=== PATIENT | male | born 1955 | race Caucasian/White ===

== ENCOUNTER 2017-02-04 08:12 | Emergency (ER) | payer MEDICARE ==
[~2017-02-04] VITALS: Ht 167.6 cm; Wt 85.0 kg
[~2017-02-04 08:12] MED LIST: ALTOPREV20 MG OR; AMILORIDE5 MG OR; AMOXIL500 MG OR; ATORVASTATIN CA40 MG PO; BACTRIM DS1 TAB PO; FENOFIBRATE145 MG PO; HYDROCHLOROT12.5 MG OR; KEFLEX500 M1 PO; LANTUS100 MG/ML SC; LEVEMIR1000 UNITS SC; LISINOPRIL30 MG PO; LISINOPRIL40 MG PO; LOPID600 MG OR; LOPID600 MG PO; LOPRESSOR50 M1 PO; LOVASTATIN20 M1 PO; METFORMIN1000 MG OR; METFORMIN850 MG OR; MICRONASE5 MG PO; NAPROSYN500 MG OR; NICOTINE T21 MG/PATC TD; NIFEDICAL XL30 MG PO; NORVASC PO; NOVOLOG100 IU/1 M SC; PENICILLN VK500 MG PO; QVAR80 MCG IN; ROBITUSSIN200 MG/10 PO; TRAMADOL HCL50 MG PO; ULTRAM50 M1 OR; ULTRAM50 M1 PO; ULTRAM50 MG OR; VENTOLIN HFA IN; VITAMIN D50000 UNT PO; ZESTRIL/PRIN5 MG/TA1 PO; ZESTRIL20 MG OR
[2017-02-04 08:46] LABS: HEMATOCRIT 38.8 % (39.0-50.0); HEMOGLOBIN 13.2 g/dl (14.0-18.0); IMMATURE GRANULOCYTES 0.4 % (0.0-1.0); MEAN CELL VOLUME 86.6 fL CALC (80.0-100.0); MEAN CORPUSCULAR HGB 29.5 pG CALC (26.0-32.0); NEUT# 8.43 thou/uL (1.82-7.42); RED BLOOD COUNT 4.48 mill/uL (4.70-6.10); RED CELL DISTRI WIDTH 13.7 % (11.5-15.5)
[2017-02-04] MEDS ORDERED: BACTRIM DS1 TAB PO (08:55)
[2017-02-04] MEDS ORDERED: MOTRIN400 MG PO (08:55)
[2017-02-04 08:58] VITALS: BP 186/78
== END 2017-02-04 09:07 | disposition home or self-care (01) ==
LOC: ED 08:12
PROVIDERS: Family Medicine
DX: M25.531 Pain in right wrist (principal); E11.22 Type 2 diabetes mellitus with diabetic chronic kidney disease; I12.9 Hypertensive chronic kidney disease with stage 1 through stage 4 chronic kidney disease, or unspecified chronic kidney disease; N18.4 Chronic kidney disease, stage 4 (severe); J44.9 Chronic obstructive pulmonary disease, unspecified; E78.5 Hyperlipidemia, unspecified; F17.210 Nicotine dependence, cigarettes, uncomplicated

== ENCOUNTER 2017-12-28 11:10 | Emergency (ER) | payer MEDICARE ==
[~2017-12-28] VITALS: Ht 167.6 cm; Wt 75.0 kg
[~2017-12-28 11:10] MED LIST changes: +MOTRIN400 MG PO
[2017-12-28 11:56] LABS: IMMATURE GRANULOCYTES 0.7 % (0.0-5.0); MEAN CELL VOLUME 89.8 fL CALC (80.0-100.0); MEAN CORPUSCULAR HGB 30.5 pG CALC (26.0-32.0); NEUT# 6.64 thou/uL (1.82-7.42); RED BLOOD COUNT 3.34 mill/uL (4.70-6.10); RED CELL DISTRI WIDTH 14.2 % (11.5-15.5)
[2017-12-28 11:57] LABS: HEMOGLOBIN 10.2 g/dl (14.0-18.0)
[2017-12-28 12:20] LABS: ALKALINE PHOSPHATASE 60 u/l (38-126); BILIRUBIN, TOTAL 0.7 mg/dL (0.0-1.4); BUN 64 mg/dL (8-23); CHLORIDE 111 mmol/l (95-108); POTASSIUM 4.3 mmol/l (3.5-5.1); SGOT/AST 32 u/l (19-48); SGPT/ALT 35 u/l (11-66); SODIUM 134 mmol/l (137-146)
[2017-12-28 12:25] LABS: BUN/CREATININE RATIO 8 (12-20 (CALC)); GFR 7 ML/MIN (>=60 (CALC)); GFR FOR AFR.AMER. 9 ML/MIN (>=60 (CALC))
[2017-12-28 12:26] LABS: ANION GAP 16 (6-22 (CALC)); CARBON DIOXIDE 11 mmol/l (22-30); CREATININE 7.6 mg/dL (0.7-1.3); TOTAL PROTEIN 5.4 g/dL (6.3-8.2)
[2017-12-28 12:31] LABS: MYOGLOBIN 104 ng/mL (0 - 121)
[2017-12-28 12:54] LABS: URINE BILIRUBIN - DIPSTICK NEGATIVE (NEGATIVE); URINE BLOOD DIPSTICK SMALL (NEGATIVE); URINE CLARITY CLEAR; URINE COLOR YELLOW; URINE GLUCOSE - DIPSTICK 250 mg/dL (NEGATIVE); URINE KETONE NEGATIVE (NEGATIVE); URINE LEUK ESTERASE NEGATIVE (NEGATIVE); URINE PH 5.5 (4.5-8.0); URINE PROTEIN - DIPSTICK 100 mg/dL (NEG-TRACE); URINE UROBILINOGEN - DIPSTICK 0.2 E.U./dL (0.2)
[2017-12-28 12:58] LABS: URINE NITRITE - DIPSTICK NEGATIVE (Negative)
[2017-12-28 13:05] LABS: URINE COARSE GRANULAR CAST FEW lpf; URINE WBC 0-2 WBC/hpf (0-5)
[2017-12-28 13:51] VITALS: BP 143/76
== END 2017-12-28 13:50 ==
LOC: ED 11:10
PROVIDERS: Emergency Medicine
DX: I12.9 Hypertensive chronic kidney disease with stage 1 through stage 4 chronic kidney disease, or unspecified chronic kidney disease (principal); F17.210 Nicotine dependence, cigarettes, uncomplicated; N18.9 Chronic kidney disease, unspecified; R42 Dizziness and giddiness; E78.5 Hyperlipidemia, unspecified; E11.9 Type 2 diabetes mellitus without complications; Z79.4 Long term (current) use of insulin

== ENCOUNTER 2018-03-07 13:06 | Outpatient (REF) | payer MEDICARE ==
[2018-03-07 13:41] VITALS: BP 164/76
--- NOTE | 2018-03-07 13:43 | NUR ---
Patient is here for Procrit injection Current Procrit dose held on 03/07/2018 Previous Procrit dose of 14,000 units on 02/21/2018 Current Hgb 12 L on 03/07/2018 Previous Hgb 11.3 L on 02/21/2018 Iron study pending Next Hgb due on:03/21/2018 Pt will come back for next dose on date 03/21/2018 Notes: Patient is doing well, Blood pressure of 164/76 with no blood pressure medications taken today. Patient has no complaints of headache and fatigue. Patient hgb level at 12 L, will hold today and check in 2 weeks, if hgb is down will start on a lower dose. QOL assessment Side effects: No
== END 2018-03-07 13:44 | disposition home or self-care (01) ==
LOC: INF 13:06
PROVIDERS: ATTEND Internal Medicine Nephrology
DX: D63.1 Anemia in chronic kidney disease (principal); N18.5 Chronic kidney disease, stage 5

== ENCOUNTER → 2018-07-13 | Outpatient (REF) ==
[~2018-07-13] MED LIST changes: +PHOSLO667 M1 PO; +PHRENILIN1 TAB PO; +PROCARDIA XL30 MG PO; +SODIUM BICARBI650 MG PO
== END | disposition home or self-care (01) | DRG 103 ==
LOC: LAB 15:21
PROVIDERS: ATTEND Physician Assistant Medical
DX: R51 Headache (principal); N25.81 Secondary hyperparathyroidism of renal origin; E87.1 Hypo-osmolality and hyponatremia

== ENCOUNTER 2018-07-20 17:22 | Emergency (ER) | payer MEDICARE ==
[~2018-07-20] VITALS: Ht 167.6 cm; Wt 84.0 kg
[~2018-07-20 17:22] MED LIST changes: -PHOSLO667 M1 PO; -PHRENILIN1 TAB PO; -PROCARDIA XL30 MG PO; -SODIUM BICARBI650 MG PO
[2018-07-20 18:33] LABS: HEMATOCRIT 27.2 % (39.0-50.0); IMMATURE GRANULOCYTES 0.6 % (0.0-5.0); MEAN CELL VOLUME 94.4 fL CALC (80.0-100.0); MEAN CORPUSCULAR HGB 30.9 pG CALC (26.0-32.0); MEAN CORPUSCULAR HGB CONC 32.7 g/L CALC (32.0-36.0); NEUT# 5.88 thou/uL (1.82-7.42); RED BLOOD COUNT 2.88 mill/uL (4.70-6.10); RED CELL DISTRI WIDTH 14.5 % (11.5-15.5)
[2018-07-20 18:34] LABS: HEMOGLOBIN 8.9 g/dl (14.0-18.0)
[2018-07-20] MEDS ORDERED: PHOSLO667 M1 PO (18:41)
[2018-07-20] MEDS ORDERED: PROCARDIA XL30 MG PO (18:41)
[2018-07-20] MEDS ORDERED: PHRENILIN1 TAB PO (18:41)
[2018-07-20] MEDS ORDERED: SODIUM BICARBI650 MG PO (18:42)
[2018-07-20 18:51] LABS: ALBUMIN 3.4 g/dL (3.2-5.0); BILIRUBIN, TOTAL 0.5 mg/dL (0.0-1.4); MAGNESIUM 1.7 mg/dL (1.6-2.3); POTASSIUM 4.4 mmol/l (3.5-5.1)
[2018-07-20 18:56] LABS: CREATININE 5.5 mg/dL (0.7-1.3)
[2018-07-20 19:22] LABS: TSH, 3RD GENERATION 0.64 uIU/mL (0.47 - 4.68)
[2018-07-20 19:40] LABS: URINE BILIRUBIN - DIPSTICK NEGATIVE (NEGATIVE); URINE BLOOD DIPSTICK TRACE-INTACT (NEGATIVE); URINE COLOR YELLOW; URINE GLUCOSE - DIPSTICK 500 mg/dL (NEGATIVE); URINE KETONE NEGATIVE (NEGATIVE); URINE LEUK ESTERASE NEGATIVE (NEGATIVE); URINE NITRITE - DIPSTICK NEGATIVE (Negative); URINE PH 7.5 (4.5-8.0); URINE PROTEIN - DIPSTICK >=300 mg/dL (NEG-TRACE); URINE SPECIFIC GRAVITY 1.015; URINE UROBILINOGEN - DIPSTICK 0.2 E.U./dL (0.2)
[2018-07-20 19:46] VITALS: BP 161/72
[2018-07-20 19:50] LABS: URINE RBC 0-2 RBC/hpf (0-5); URINE WBC 0-2 WBC/hpf (0-5)
== END 2018-07-20 21:00 | disposition home or self-care (01) ==
LOC: ED 17:22
PROVIDERS: Family Medicine
DX: D64.9 Anemia, unspecified (principal); E11.22 Type 2 diabetes mellitus with diabetic chronic kidney disease; I12.0 Hypertensive chronic kidney disease with stage 5 chronic kidney disease or end stage renal disease; N18.6 End stage renal disease; Z99.2 Dependence on renal dialysis; E78.5 Hyperlipidemia, unspecified; J44.9 Chronic obstructive pulmonary disease, unspecified; F17.210 Nicotine dependence, cigarettes, uncomplicated

== ENCOUNTER 2018-10-02 07:41 | Emergency (ER) | payer MEDICARE ==
[~2018-10-02] VITALS: Ht 167.6 cm; Wt 72.0 kg
[~2018-10-02 07:41] MED LIST changes: -LANTUS100 MG/ML SC; +LANTUS100 UNIT/M SC; +PHOSLO667 M1 PO; +PHRENILIN1 TAB PO; +PROCARDIA XL60 MG PO; +SODIUM BICARBI650 MG PO
[2018-10-02] MEDS ORDERED: VITAMIN D50000 UNIT PO (08:07)
[2018-10-02 08:24] LABS: IMMATURE GRANULOCYTES 1.1 % (0.0-5.0); MEAN CELL VOLUME 96.8 fL CALC (80.0-100.0); MEAN CORPUSCULAR HGB 30.7 pG CALC (26.0-32.0); MEAN CORPUSCULAR HGB CONC 31.7 g/L CALC (32.0-36.0); NEUT# 9.96 thou/uL (1.82-7.42); RED BLOOD COUNT 4.11 mill/uL (4.70-6.10); RED CELL DISTRI WIDTH 15.2 % (11.5-15.5)
[2018-10-02 08:36] LABS: ALBUMIN 3.9 g/dL (3.2-5.0); BILIRUBIN, TOTAL 0.5 mg/dL (0.0-1.4); TOTAL PROTEIN 6.8 g/dL (6.3-8.2)
[2018-10-02 08:39] LABS: POTASSIUM 5.7 mmol/l (3.5-5.1)
[2018-10-02 08:40] LABS: CREATININE 7.6 mg/dL (0.7-1.3)
[2018-10-02 08:41] LABS: HEMATOCRIT 39.8 % (39.0-50.0); HEMOGLOBIN 12.6 g/dl (14.0-18.0)
[2018-10-02 11:02] VITALS: BP 111/63
== END 2018-10-02 11:03 ==
LOC: ED 07:41
PROVIDERS: Emergency Medicine
DX: J96.02 Acute respiratory failure with hypercapnia (principal); R06.02 Shortness of breath; F17.210 Nicotine dependence, cigarettes, uncomplicated; I12.0 Hypertensive chronic kidney disease with stage 5 chronic kidney disease or end stage renal disease; N18.6 End stage renal disease; Z99.2 Dependence on renal dialysis

== ENCOUNTER 2018-10-05 08:08 | Emergency (ER) | payer MEDICARE ==
[~2018-10-05] VITALS: Ht 167.6 cm; Wt 77.1 kg
[~2018-10-05 08:08] MED LIST changes: +VITAMIN D50000 UNIT PO
[2018-10-05 08:57] LABS: HEMOGLOBIN 11.2 g/dl (14.0-18.0); IMMATURE GRANULOCYTES 0.7 % (0.0-5.0); MEAN CELL VOLUME 91.9 fL CALC (80.0-100.0); MEAN CORPUSCULAR HGB 30.3 pG CALC (26.0-32.0); MEAN CORPUSCULAR HGB CONC 32.9 g/L CALC (32.0-36.0); NEUT# 6.44 thou/uL (1.82-7.42); RED BLOOD COUNT 3.7 mill/uL (4.70-6.10)
[2018-10-05 09:20] LABS: ALBUMIN 3.6 g/dL (3.2-5.0); BILIRUBIN, TOTAL 0.5 mg/dL (0.0-1.4); TOTAL PROTEIN 6.2 g/dL (6.3-8.2)
[2018-10-05 09:25] LABS: CREATININE 4.4 mg/dL (0.7-1.3); POTASSIUM 4.5 mmol/l (3.5-5.1)
[2018-10-05 11:43] VITALS: BP 158/66
== END 2018-10-05 11:59 | disposition home or self-care (01) ==
LOC: ED 08:08 → ED-I 08:25 → ED 08:25 → ED-I 09:48 → ED 11:59
PROVIDERS: Emergency Medicine
DX: R07.9 Chest pain, unspecified (principal); J44.9 Chronic obstructive pulmonary disease, unspecified; F17.210 Nicotine dependence, cigarettes, uncomplicated; R06.02 Shortness of breath; R05 Cough; I10 Essential (primary) hypertension

== ENCOUNTER 2018-10-06 17:27 | Emergency (ER) | payer MEDICARE ==
[~2018-10-06] VITALS: Ht 167.6 cm; Wt 77.0 kg
[2018-10-06 18:40] LABS: HEMATOCRIT 37.5 % (39.0-50.0); HEMOGLOBIN 12.6 g/dl (14.0-18.0); IMMATURE GRANULOCYTES 0.8 % (0.0-5.0); MEAN CELL VOLUME 91.7 fL CALC (80.0-100.0); MEAN CORPUSCULAR HGB 30.8 pG CALC (26.0-32.0); MEAN CORPUSCULAR HGB CONC 33.6 g/L CALC (32.0-36.0); NEUT# 8.38 thou/uL (1.82-7.42); RED BLOOD COUNT 4.09 mill/uL (4.70-6.10); RED CELL DISTRI WIDTH 14.7 % (11.5-15.5)
[2018-10-06 19:01] LABS: BILIRUBIN, TOTAL 0.5 mg/dL (0.0-1.4); CREATININE 3.9 mg/dL (0.7-1.3); TOTAL PROTEIN 6.6 g/dL (6.3-8.2)
[2018-10-06 20:36] LABS: ACT PARTIAL THROMBO TIME 26.4 SECONDS (20.0-32.5); INTERNATIONAL NORMALIZED RATIO 0.9 RATIO (0.7-1.3); PROTHROMBIN TIME 9.9 SECONDS (9.0-12.5)
[2018-10-06 23:00] VITALS: BP 185/86
== END 2018-10-06 23:11 ==
LOC: ED 17:27
PROVIDERS: Emergency Medicine; Family Medicine
DX: R07.9 Chest pain, unspecified (principal); R74.8 Abnormal levels of other serum enzymes; R06.02 Shortness of breath; R51 Headache; E11.22 Type 2 diabetes mellitus with diabetic chronic kidney disease; I12.0 Hypertensive chronic kidney disease with stage 5 chronic kidney disease or end stage renal disease; N18.6 End stage renal disease; J44.9 Chronic obstructive pulmonary disease, unspecified; F17.210 Nicotine dependence, cigarettes, uncomplicated; Z99.2 Dependence on renal dialysis
CPT/HCPCS: J1644

== ENCOUNTER 2018-11-24 16:40 | Emergency (ER) | payer MEDICARE ==
[~2018-11-24] VITALS: Ht 167.6 cm; Wt 78.0 kg
[2018-11-24 17:05] LABS: HEMATOCRIT 35.5 % (39.0-50.0); HEMOGLOBIN 11.6 g/dl (14.0-18.0); IMMATURE GRANULOCYTES 2.9 % (0.0-5.0); MEAN CELL VOLUME 89.6 fL CALC (80.0-100.0); MEAN CORPUSCULAR HGB 29.3 pG CALC (26.0-32.0); MEAN CORPUSCULAR HGB CONC 32.7 g/L CALC (32.0-36.0); NEUT# 9.19 thou/uL (1.82-7.42); RED BLOOD COUNT 3.96 mill/uL (4.70-6.10); RED CELL DISTRI WIDTH 15.5 % (11.5-15.5)
[2018-11-24 17:29] LABS: CREATININE 2.6 mg/dL (0.7-1.3)
[2018-11-24] MEDS ORDERED: PHOSLO667 M1 PO (17:57)
[2018-11-24] MEDS ORDERED: NIFEDIPINE60 MG PO (17:57)
[2018-11-24 21:39] VITALS: BP 122/54
== END 2018-11-24 21:38 ==
LOC: ED 16:40
PROVIDERS: Family Medicine
DX: I48.91 Unspecified atrial fibrillation (principal); E11.22 Type 2 diabetes mellitus with diabetic chronic kidney disease; I12.0 Hypertensive chronic kidney disease with stage 5 chronic kidney disease or end stage renal disease; N18.6 End stage renal disease; J44.9 Chronic obstructive pulmonary disease, unspecified; F17.200 Nicotine dependence, unspecified, uncomplicated; Z99.2 Dependence on renal dialysis; R07.9 Chest pain, unspecified

== ENCOUNTER 2019-01-05 03:13 | Emergency (ER) | payer MEDICARE ==
[~2019-01-05] VITALS: Ht 167.6 cm; Wt 100.0 kg
[~2019-01-05 03:13] MED LIST changes: +NIFEDIPINE60 MG PO
[2019-01-05 03:52] LABS: IMMATURE GRANULOCYTES 0.4 % (0.0-5.0); MEAN CELL VOLUME 90.5 fL CALC (80.0-100.0); MEAN CORPUSCULAR HGB 29.1 pG CALC (26.0-32.0); MEAN CORPUSCULAR HGB CONC 32.1 g/L CALC (32.0-36.0); NEUT# 6.97 thou/uL (1.82-7.42); RED BLOOD COUNT 3.06 mill/uL (4.70-6.10); RED CELL DISTRI WIDTH 14.7 % (11.5-15.5)
[2019-01-05 04:08] LABS: HEMATOCRIT 27.7 % (39.0-50.0); HEMOGLOBIN 8.9 g/dl (14.0-18.0)
[2019-01-05] MEDS ORDERED: ATORVASTATIN CA40 MG PO (04:09)
[2019-01-05] MEDS ORDERED: ASPIRINCHW 81MG PO (04:09)
[2019-01-05] MEDS ORDERED: CARVEDILOL6.25 MG PO (04:10)
[2019-01-05] MEDS ORDERED: CLOPIDOGREL75 MG PO (04:11)
[2019-01-05] MEDS ORDERED: DIOVAN160 MG PO (04:11)
[2019-01-05] MEDS ORDERED: VENTOLIN HF1 IN (04:13)
[2019-01-05 04:16] LABS: ACT PARTIAL THROMBO TIME 26.8 SECONDS (20.0-32.5); INTERNATIONAL NORMALIZED RATIO 1.1 RATIO (0.7-1.3); PROTHROMBIN TIME 11.2 SECONDS (9.0-12.5)
[2019-01-05 04:17] LABS: ALBUMIN 3.2 g/dL (3.2-5.0); ALKALINE PHOSPHATASE 118 u/l (38-126); ANION GAP 15 (6-22 (CALC)); BILIRUBIN, TOTAL 0.5 mg/dL (0.0-1.4); BUN 34 mg/dL (8-23); BUN/CREATININE RATIO 6 (12-20 (CALC)); CARBON DIOXIDE 26 mmol/l (22-30); CHLORIDE 99 mmol/l (95-108); GFR 10 ML/MIN (>=60 (CALC)); GFR FOR AFR.AMER. 12 ML/MIN (>=60 (CALC)); POTASSIUM 3.9 mmol/l (3.5-5.1); SGOT/AST 18 u/l (19-48); SODIUM 135 mmol/l (137-146); TOTAL PROTEIN 5.6 g/dL (6.3-8.2)
[2019-01-05 04:22] LABS: CREATININE 5.7 mg/dL (0.7-1.3)
[2019-01-05 04:29] LABS: MYOGLOBIN 176 ng/mL (0 - 121)
[2019-01-05 07:00] VITALS: BP 126/61
== END 2019-01-05 07:00 ==
LOC: ED 03:13
PROVIDERS: Emergency Medicine
DX: I48.91 Unspecified atrial fibrillation (principal); R07.9 Chest pain, unspecified; D64.9 Anemia, unspecified; R79.89 Other specified abnormal findings of blood chemistry; I12.0 Hypertensive chronic kidney disease with stage 5 chronic kidney disease or end stage renal disease; E11.22 Type 2 diabetes mellitus with diabetic chronic kidney disease; N18.6 End stage renal disease; J44.9 Chronic obstructive pulmonary disease, unspecified; F17.210 Nicotine dependence, cigarettes, uncomplicated; Z99.2 Dependence on renal dialysis

== ENCOUNTER 2019-01-29 01:02 | Emergency (ER) | payer MEDICARE ==
[~2019-01-29] VITALS: Ht 167.6 cm; Wt 63.6 kg
[~2019-01-29 01:02] MED LIST changes: +ASPIRINCHW 81MG PO; +CARVEDILOL6.25 MG PO; +CLOPIDOGREL75 MG PO; +DIOVAN160 MG PO; +VENTOLIN HF1 IN
--- NOTE | 2019-01-29 01:26 | NUR ---
BREATHING TREATMENT GIVEN WITH ONE UD DUONEB AND 2 UD ALBUTEROL. BREATHING TECH. FOR GOOD DEPOSITION TO THE LUNGS.
[2019-01-29 01:50] LABS: HEMATOCRIT 28.3 % (39.0-50.0); IMMATURE GRANULOCYTES 0.4 % (0.0-5.0); MEAN CELL VOLUME 89.6 fL CALC (80.0-100.0); MEAN CORPUSCULAR HGB 28.5 pG CALC (26.0-32.0); MEAN CORPUSCULAR HGB CONC 31.8 g/L CALC (32.0-36.0); NEUT# 6.06 thou/uL (1.82-7.42); RED BLOOD COUNT 3.16 mill/uL (4.70-6.10); RED CELL DISTRI WIDTH 14.9 % (11.5-15.5)
[2019-01-29 02:03] LABS: ALBUMIN 3.7 g/dL (3.2-5.0); BILIRUBIN, TOTAL 0.6 mg/dL (0.0-1.4); TOTAL PROTEIN 6.6 g/dL (6.3-8.2)
[2019-01-29 02:05] LABS: CREATININE 7.7 mg/dL (0.7-1.3); POTASSIUM 5.5 mmol/l (3.5-5.1)
[2019-01-29 02:58] LABS: URINE BILIRUBIN - DIPSTICK NEGATIVE (NEGATIVE); URINE BLOOD DIPSTICK SMALL (NEGATIVE); URINE COLOR YELLOW; URINE GLUCOSE - DIPSTICK 250 mg/dL (NEGATIVE); URINE KETONE NEGATIVE (NEGATIVE); URINE LEUK ESTERASE NEGATIVE (NEGATIVE); URINE NITRITE - DIPSTICK NEGATIVE (Negative); URINE PH 7.5 (4.5-8.0); URINE PROTEIN - DIPSTICK 100 mg/dL (NEG-TRACE); URINE UROBILINOGEN - DIPSTICK 0.2 E.U./dL (0.2)
[2019-01-29 03:05] LABS: URINE RBC 0-2 RBC/hpf (0-5); URINE WBC 0-2 WBC/hpf (0-5)
[2019-01-29 03:15] VITALS: BP 165/72
== END 2019-01-29 03:40 | disposition home or self-care (01) ==
LOC: ED 01:02
PROVIDERS: Family Medicine
DX: J44.1 Chronic obstructive pulmonary disease with (acute) exacerbation (principal); F17.210 Nicotine dependence, cigarettes, uncomplicated; I12.0 Hypertensive chronic kidney disease with stage 5 chronic kidney disease or end stage renal disease; N18.6 End stage renal disease; Z99.2 Dependence on renal dialysis; J81.1 Chronic pulmonary edema

== ENCOUNTER 2019-02-15 12:23 | Emergency (ER) | payer MEDICARE ==
[~2019-02-15] VITALS: Ht 167.6 cm; Wt 77.5 kg
[2019-02-15 13:34] LABS: HEMATOCRIT 27.3 % (39.0-50.0); HEMOGLOBIN 8.7 g/dl (14.0-18.0); IMMATURE GRANULOCYTES 0.4 % (0.0-5.0); MEAN CELL VOLUME 87.5 fL CALC (80.0-100.0); MEAN CORPUSCULAR HGB 27.9 pG CALC (26.0-32.0); MEAN CORPUSCULAR HGB CONC 31.9 g/L CALC (32.0-36.0); NEUT# 4.64 thou/uL (1.82-7.42); RED BLOOD COUNT 3.12 mill/uL (4.70-6.10); RED CELL DISTRI WIDTH 15.6 % (11.5-15.5)
[2019-02-15 13:46] LABS: CREATININE 4.8 mg/dL (0.7-1.3)
[2019-02-15 16:35] VITALS: BP 121/77
== END 2019-02-15 16:35 ==
LOC: ED 12:23
PROVIDERS: Family Medicine
DX: I48.92 Unspecified atrial flutter (principal); E11.22 Type 2 diabetes mellitus with diabetic chronic kidney disease; I12.0 Hypertensive chronic kidney disease with stage 5 chronic kidney disease or end stage renal disease; N18.6 End stage renal disease; J44.9 Chronic obstructive pulmonary disease, unspecified; F17.200 Nicotine dependence, unspecified, uncomplicated; Z95.5 Presence of coronary angioplasty implant and graft; Z99.2 Dependence on renal dialysis

== ENCOUNTER 2019-03-19 20:30 | Emergency (ER) | payer MEDICARE ==
[~2019-03-19] VITALS: Ht 167.6 cm; Wt 80.0 kg
[2019-03-19 21:10] LABS: HEMATOCRIT 31.5 % (39.0-50.0); HEMOGLOBIN 9.8 g/dl (14.0-18.0); IMMATURE GRANULOCYTES 0.3 % (0.0-5.0); MEAN CELL VOLUME 86.5 fL CALC (80.0-100.0); MEAN CORPUSCULAR HGB 26.9 pG CALC (26.0-32.0); MEAN CORPUSCULAR HGB CONC 31.1 g/L CALC (32.0-36.0); NEUT# 5.39 thou/uL (1.82-7.42); RED BLOOD COUNT 3.64 mill/uL (4.70-6.10); RED CELL DISTRI WIDTH 15.8 % (11.5-15.5)
[2019-03-19 21:28] LABS: ALBUMIN 3.3 g/dL (3.2-5.0); BILIRUBIN, TOTAL 0.7 mg/dL (0.0-1.4); CREATININE 4.4 mg/dL (0.7-1.3); POTASSIUM 4.6 mmol/l (3.5-5.1); TOTAL PROTEIN 6.1 g/dL (6.3-8.2)
[2019-03-19 22:30] VITALS: BP 170/72
== END 2019-03-19 22:32 ==
LOC: ED 20:30
PROVIDERS: Emergency Medicine
PROC: 2W21X4Z Dressing of Face using Bandage (ICD-10-PCS; principal; 2019-03-19)
PROC: 2W2EX4Z Dressing of Right Hand using Bandage (ICD-10-PCS; 2019-03-19)
DX: T20.26XA Burn of second degree of forehead and cheek, initial encounter (principal); T20.20XA Burn of second degree of head, face, and neck, unspecified site, initial encounter; T23.251A Burn of second degree of right palm, initial encounter; T31.0 Burns involving less than 10% of body surface; J44.1 Chronic obstructive pulmonary disease with (acute) exacerbation; J44.0 Chronic obstructive pulmonary disease with (acute) lower respiratory infection; J18.9 Pneumonia, unspecified organism; E11.9 Type 2 diabetes mellitus without complications; I10 Essential (primary) hypertension; F17.200 Nicotine dependence, unspecified, uncomplicated; X04.XXXA Exposure to ignition of highly flammable material, initial encounter; Y93.89 Activity, other specified; Y92.009 Unspecified place in unspecified non-institutional (private) residence as the place of occurrence of the external cause; Z99.81 Dependence on supplemental oxygen

== ENCOUNTER 2019-04-29 13:21 | Emergency (ER) | payer MEDICARE ==
[~2019-04-29] VITALS: Ht 167.6 cm; Wt 77.7 kg
[2019-04-29 14:44] LABS: HEMATOCRIT 31.9 % (39.0-50.0); HEMOGLOBIN 9.8 g/dl (14.0-18.0); IMMATURE GRANULOCYTES 0.7 % (0.0-5.0); MEAN CELL VOLUME 84.8 fL CALC (80.0-100.0); MEAN CORPUSCULAR HGB 26.1 pG CALC (26.0-32.0); MEAN CORPUSCULAR HGB CONC 30.7 g/L CALC (32.0-36.0); NEUT# 15.79 thou/uL (1.82-7.42); RED BLOOD COUNT 3.76 mill/uL (4.70-6.10)
[2019-04-29 15:30] LABS: CREATININE 7.2 mg/dL (0.7-1.3); POTASSIUM 5.7 mmol/l (3.5-5.1)
[2019-04-29 17:10] VITALS: BP 159/88
--- NOTE | 2019-05-03 15:36 | NUR ---
FAXED BLOOD CULTURE RESULTS PRESENTING WITH MRSA TO [facility] TO [facility]. FAX NUMBER IS [phone] PER HELENA.
== END 2019-04-29 17:10 ==
LOC: ED 13:21
PROVIDERS: Family Medicine
DX: T78.3XXA Angioneurotic edema, initial encounter (principal); J18.9 Pneumonia, unspecified organism; J44.0 Chronic obstructive pulmonary disease with (acute) lower respiratory infection; E11.22 Type 2 diabetes mellitus with diabetic chronic kidney disease; I12.0 Hypertensive chronic kidney disease with stage 5 chronic kidney disease or end stage renal disease; N18.6 End stage renal disease; Z99.2 Dependence on renal dialysis; F17.200 Nicotine dependence, unspecified, uncomplicated

== ENCOUNTER 2019-05-20 01:02 | Emergency (ER) | payer MEDICARE ==
[~2019-05-20] VITALS: Ht 167.6 cm; Wt 68.2 kg
[2019-05-20 01:40] LABS: HEMATOCRIT 32.4 % (39.0-50.0); HEMOGLOBIN 9.4 g/dl (14.0-18.0); IMMATURE GRANULOCYTES 0.5 % (0.0-5.0); MEAN CORPUSCULAR HGB 26.5 pG CALC (26.0-32.0); NEUT# 7.18 thou/uL (1.82-7.42); RED BLOOD COUNT 3.55 mill/uL (4.70-6.10); RED CELL DISTRI WIDTH 20.4 % (11.5-15.5)
[2019-05-20 01:44] LABS: MEAN CELL VOLUME 91.3 fL CALC (80.0-100.0)
[2019-05-20 01:54] LABS: ALBUMIN 3.5 g/dL (3.2-5.0); BILIRUBIN, TOTAL 0.6 mg/dL (0.0-1.4); TOTAL PROTEIN 6.8 g/dL (6.3-8.2)
[2019-05-20 01:56] LABS: CREATININE 4.3 mg/dL (0.7-1.3)
[2019-05-20 01:57] LABS: POTASSIUM 5.6 mmol/l (3.5-5.1)
[2019-05-20] MEDS ORDERED: ELIQUIS2.5 MG PO (02:08)
[2019-05-20] MEDS ORDERED: AMIODARONE200 MG PO (02:09)
[2019-05-20 04:15] VITALS: BP 142/67
== END 2019-05-20 04:15 ==
LOC: ED 01:02
PROVIDERS: Family Medicine
DX: J44.1 Chronic obstructive pulmonary disease with (acute) exacerbation (principal); J18.9 Pneumonia, unspecified organism; J44.0 Chronic obstructive pulmonary disease with (acute) lower respiratory infection; J96.92 Respiratory failure, unspecified with hypercapnia; E11.22 Type 2 diabetes mellitus with diabetic chronic kidney disease; I12.0 Hypertensive chronic kidney disease with stage 5 chronic kidney disease or end stage renal disease; N18.6 End stage renal disease; Z99.2 Dependence on renal dialysis; F17.200 Nicotine dependence, unspecified, uncomplicated; Z95.5 Presence of coronary angioplasty implant and graft